=== PATIENT | male | born 1990 | race Caucasian/White ===

== ENCOUNTER 2020-08-05 03:49 | Emergency (ER) | payer OTHER ==
[~2020-08-05] VITALS: Ht 175.3 cm; Wt 113.4 kg
[2020-08-05] MEDS ORDERED: TETANUS-DIPTH-ACEL PERTUSSIS 0.5ML SYR Tdap IM ONE (04:30)
[2020-08-05] MEDS ORDERED: cefTRIAXone SOD 1,000 MG VL IM ONE (04:30)
[2020-08-05 04:43] VITALS: BP 152/82
[2020-08-05] MEDS ORDERED: MORPHINE SULF INJ 2 MG/ML SYRINGE 1ML IM ONE (04:45)
[2020-08-05] MEDS ORDERED: ONDANSETRON ODT 4 MG TAB PO ONE (04:45)
[2020-08-05] MEDS ORDERED: BACITRACIN TOP OINT 1 UD PKG TOP ONE (06:45)
== END 2020-08-05 07:20 | disposition home or self-care (01) ==
LOC: ER 03:52
DX: S61.411A Laceration without foreign body of right hand, initial encounter (principal); W27.8XXA Contact with other nonpowered hand tool, initial encounter; Y93.89 Activity, other specified; Y92.89 Other specified places as the place of occurrence of the external cause; Y99.8 Other external cause status
CPT/HCPCS: 12002; 73090; 73110; 73130; 90471; 90715; 96372; 99284; J0696; J2270; Q0162

== ENCOUNTER 2020-08-05 20:55 | Emergency (ER) | payer OTHER ==
[2020-08-05] MEDS ORDERED: cefTRIAXone SOD 1,000 MG VL IM ONE (21:45)
[2020-08-05] MEDS ORDERED: BACITRACIN TOP OINT 1 UD PKG TOP ONE (21:45)
[2020-08-05] MEDS ORDERED: KETOROLAC TROMETH 60MG/2ML VIAL IM ONE (21:45)
[2020-08-05 22:08] VITALS: BP 128/83
== END 2020-08-05 22:46 | disposition home or self-care (01) ==
LOC: ER 20:56
DX: S69.91XA Unspecified injury of right wrist, hand and finger(s), initial encounter (principal); X58.XXXA Exposure to other specified factors, initial encounter; Y93.89 Activity, other specified; Y92.89 Other specified places as the place of occurrence of the external cause; Y99.8 Other external cause status
CPT/HCPCS: 96372; 99284; J0696; J1885